=== PATIENT | male | born 1970 | race Caucasian/White ===

== ENCOUNTER 2021-02-17 09:47 | Emergency (ER) | payer OTHER, MEDICARE ==
[~2021-02-17] VITALS: Ht 185.4 cm; Wt 91.2 kg
[~2021-02-17 09:47] MED LIST: BUPR75 PO; Norco 10-325 T1 EACH PO
== END 2021-02-17 10:47 | disposition home or self-care (01) ==
LOC: ER 09:47
DX: S61.031A Puncture wound without foreign body of right thumb without damage to nail, initial encounter (principal); Z23 Encounter for immunization; W26.0XXA Contact with knife, initial encounter
CPT/HCPCS: 90471; 90714; 99282

== ENCOUNTER 2022-11-29 07:57 | Emergency (ER) | payer OTHER ==
[~2022-11-29] VITALS: Ht 185.4 cm; Wt 93.4 kg
[2022-11-29 09:16] LABS: Source, Urine Clean Catch
[2022-11-29 09:30] LABS: Appearance, Urine Clear (Clear); Bilirubin, Urine Neg (Neg); Blood, Urine 1+ (Neg); Color, Urine Yellow (P-Yellow); Glucose Qualitative, Urine Neg (Neg); Ketones, Urine Neg (Neg); Leukocyte Esterase, Urine Neg (Neg); Nitrite, Urine Neg (Neg); Protein, Urine 1+ (Neg); Urobilinogen, Urine NORM (Normal); pH, Urine 6.5 (5.0-8.0)
[2022-11-29 09:41] LABS: Bacteria Not Seen /hpf; Mucus Light (0-Heavy); Red Blood Cells, Urine 0-2 /hpf (0-2); Squamous Epithelial Cells Rare /hpf (Few); White Blood Cells, Urine Not Seen /hpf (0-5)
[2022-11-29 10:00] VITALS: BP 140/103
[2022-11-29 10:12] LABS: BASOPHILS ABSOLUTE AUTO 0.06 K/mm3 (0.00-0.23); BASOPHILS PERCENT AUTO 1 % (0-2); EOSINOPHILS ABSOLUTE AUTO 0.08 K/mm3 (0.00-0.68); EOSINOPHILS PERCENT AUTO 1 % (0-6); Hematocrit 47.5 % (37.0-53.0); Hemoglobin 16.6 g/dL (13.5-17.5); IMMATURE GRAN ABSOLUTE AUTO 0.01 K/mm3 (0.00-0.10); IMMATURE GRAN PERCENT AUTO 0 % (0-1); LYMPHOCYTES ABSOLUTE AUTO 1.56 K/mm3 (0.84-5.20); LYMPHOCYTES PERCENT AUTO 22 % (21-46); MONOCYTES ABSOLUTE AUTO 0.43 K/mm3 (0.16-1.47); MONOCYTES PERCENT AUTO 6 % (4-13); Mean Corpuscular HGB 28.9 pg (26.0-34.0); Mean Corpuscular HGB Conc 34.9 g/dL (31.5-36.5); Mean Corpuscular Volume 83 fL (80-100); Mean Platelet Volume 10.9 fL (9.1-12.4); NEUTROPHILS ABSOLUTE AUTO 5.08 K/mm3 (1.96-9.15); NEUTROPHILS PERCENT AUTO 70 % (41-73); Platelet Count 231 K/mm3 (150-400); RDW Standard Deviation 38.7 fL (35.1-46.3); Red Blood Cell Count 5.74 M/mm3 (4.30-5.90); White Blood Cell Count 7.22 K/mm3 (4.00-11.30)
[2022-11-29 10:36] LABS: Albumin, Blood 4.1 g/dL (3.4-5.0); Albumin/Globulin Ratio 1.1 (0.8-1.8); Bilirubin, Total 0.9 mg/dL (0.1-1.0); Bun/Creatinine Ratio 16.8 (12.0-20.0); Calcium, Blood 9.2 mg/dL (8.5-10.1); Creatinine, Blood 1.01 mg/dL (0.60-1.20); Globulin, Blood 3.7 g/dL (2.2-4.0); Potassium, Blood 3.8 mmol/L (3.5-5.5); Total Protein, Blood 7.8 g/dL (6.4-8.2)
== END 2022-11-29 10:45 | disposition home or self-care (01) ==
LOC: ER 07:57
PROVIDERS: Physician Assistant
DX: R10.9 Unspecified abdominal pain (principal); I10 Essential (primary) hypertension; Z79.899 Other long term (current) drug therapy
CPT/HCPCS: 36415; 74177; 80053; 81001; 83690; 85025; 96374-59; 99284-25; J1885

== ENCOUNTER 2024-09-03 11:01 | Day surgery (SDC) | payer OTHER ==
[~2024-09-03] VITALS: Ht 185.4 cm; Wt 93.5 kg
[~2024-09-03 11:01] MED LIST changes: +BUPROPION XL150 M1 PO; +CHLO25B PO; +DICLOFENAC PO; +OMEPRAZOLE20 M2 PO; +Prinivil10 MG PO; +Vitamin D1000 UNI1; +Vitamin D1000 UNI1 PO; +ZYRTEC10 M4 PO
[2024-09-03] MEDS ORDERED: CeFAZolin Sodium 2,000 MG VIAL ONE (11:47)
[2024-09-03] MEDS ORDERED: Lactated Ringer's 1,000 ML IV ONE (12:12)
[2024-09-03] MEDS ORDERED: Remifentanil 1 MG Vial ONE ×2 (12:13→15:05)
[2024-09-03] MEDS ORDERED: propofoL 50 ML IV ONE ×2 (12:13→15:05)
[2024-09-03] MEDS ORDERED: propofoL 20 ML IV ONE (13:20)
[2024-09-03] MEDS ORDERED: Midazolam HCl 1MG / ML 2ML Vial ONE (13:20)
[2024-09-03] MEDS ORDERED: FentaNYL Citrate 50 MCG/ML 2 ML Injection ONE (13:20)
[2024-09-03] MEDS ORDERED: EPINEPhrine HCl 1 MG/ML 1ML Amp ONE (13:21)
[2024-09-03] MEDS ORDERED: Ondansetron HCl 2 MG / ML 2ML Vial ONE (13:24)
[2024-09-03] MEDS ORDERED: Rocuronium Bromide 10 MG/ML 5ML Injection IV ONE (13:24)
[2024-09-03] MEDS ORDERED: Ketorolac Tromethamine 30mg Vial ONE (13:24)
[2024-09-03] MEDS ORDERED: Dexamethasone Sod Phos 10 MG/ML 1ML VIAL ONE (13:24)
[2024-09-03] MEDS ORDERED: Sugammadex Sodium 200 MG/2ML SDV (100 MG/ML) ONE (13:25)
--- NOTE | 2024-09-03 13:47 | NUR ---
09/03/24 1347 CANELO MORALES TIMEOUT COMPLETED AT BEDSIDE WITH ANESTHESIA THIS RN, PT AND FOR NERVE BLOCK PROCEDURE. SPO2 AND BP MONITORED DURING PROCEDURE, PT ON 2L NC. VITALS REMAINED WNL THROUGHOUT PROCEDURE. NO COMPLICATIONS.
--- NOTE | 2024-09-03 15:28 | NUR ---
09/03/24 1528 Juana Kumar PT ARRIVES TO PACU ON RA, DROWSY BUT CONVERSING W/ OR STAFF. VSS. NO VISIBLE SIGNS OF DISTRESS NOTED.
--- NOTE | 2024-09-03 15:49 | NUR ---
09/03/24 1549 Juana Kumar PT TRANSFERRED TO SDU. VSS, ON RA. PT STATES A LITTLE DISCOMFORT TO L ARMPIT, BUT NO PAIN TO L SHOULDER. PT DENIES NAUSEA. NO VISIBLE SIGNS OF DISTRESS NOTED.
[2024-09-03 16:16] VITALS: BP 113/74
[2024-09-06 13:06] LABS: HEPATITIS B SURFACE ANTIGEN Negative (Negative)
[2024-09-08 07:01] LABS: HCV QNT BY NAAT (IU/ML) Not Detected; HCV QNT BY NAAT (LOG IU/ML) Not Detected; HCV QNT BY NAAT INTERP Not Detected (Not Detected)
== END 2024-09-03 17:10 | disposition home or self-care (01) ==
LOC: ORSCSDS 11:01
PROVIDERS: Orthopaedic Surgery
PROC: 0LQ24ZZ Repair Left Shoulder Tendon, Percutaneous Endoscopic Approach (ICD-10-PCS; principal; 2024-09-03 12:30)
DX: M75.102 Unspecified rotator cuff tear or rupture of left shoulder, not specified as traumatic (principal); I10 Essential (primary) hypertension; K21.9 Gastro-esophageal reflux disease without esophagitis; G47.33 Obstructive sleep apnea (adult) (pediatric); Z79.899 Other long term (current) drug therapy
CPT/HCPCS: 87340; 87522; C1713; J0171; J0690; J1100; J1885; J2250; J2405; J2704; J3010; J7120